=== PATIENT | male | born 1965 | race African-American/Black ===

== ENCOUNTER 2022-02-21 19:02 | Inpatient (IN) | payer OTHER, SELFPAY ==
[2022-02-21 21:13] VITALS: BMI 27.4
[2022-02-21] MEDS ORDERED: Dextrose 50% Abboject 50 ML SYRINGE SLOW IVP PRN (22:07)
[2022-02-21] MEDS ORDERED: hydrALAZINE 20 MG/ML VIAL SLOW IVP PRN (22:07)
[2022-02-21] MEDS ORDERED: Dextrose 5% in Water 1,000 ML IV PRN (22:07)
[2022-02-21] MEDS ORDERED: Ondansetron PF 4 MG/2 ML Vial IVP PRN (22:07)
[2022-02-21] MEDS ORDERED: Furosemide 40 MG/4 ML VIAL SLOW IVP SCH (22:45)
[2022-02-21] MEDS ORDERED: Lisinopril 20 MG TAB PO SCH (22:45)
[2022-02-22 07:00] LABS: #Eosinphils 0.2 thou/uL (0.0-0.7); #Lymphocytes 0.8 thou/uL (1.20-3.40); #Monocytes 0.5 thou/uL (0.11-0.59); #Neutrophils 3.4 thou/uL (1.40-6.50); %Basophils 0.6 % (0.0-1.0); %Eosinophils 4.6 % (0.0-10.0); %Lymphocytes 16.5 % (21.0-51.0); %Monocytes 10.9 % (0.0-10.0); %Neutrophils 67.4 % (42.0-75.0); Hemoglobin 11.1 g/dL (14.0-18.0); Mean Corpuscular HGB CONC 30.8 g/dL (32.0-36.0); Mean Corpuscular Hemoglobin 32.2 pg (27.0-31.0); Mean Platelet Volume 9.2 fL (7.4-10.4); Platelet Count 156 thou/uL (130-400); RBC Distribution Width 14.4 % (11.5-14.5); Red Blood Cell (RBC) Count 3.45 mill/uL (4.70-6.10)
[2022-02-22] MEDS ORDERED: Furosemide 40 MG TAB PO PRN (07:26)
[2022-02-22 07:27] LABS: ALT (SGPT) 13 U/L (8-55); AST (SGOT) 34 U/L (5-34); Alkaline Phosphatase 184 U/L (40-110); Anion Gap 13 mmol/L (10-20); BUN (Urea Nitrogen) 34 mg/dL (8.4-25.7); Bilirubin, Total 0.7 mg/dL (0.2-1.2); Calc. Creatinine Clearance 47 mL/min (70-130); Calcium 8.3 mg/dL (7.8-10.44); Carbon Dioxide 24 mmol/L (22-29); Chloride 104 mmol/L (98-107); Globulin 4.6 g/dL (2.4-3.5); Glucose 118 mg/dL (70-105); Magnesium 1.7 mg/dL (1.6-2.6); Potassium 4.6 mmol/L (3.5-5.1); Protein, Total 7.6 g/dL (6.0-8.3); Sodium 136 mmol/L (136-145)
[2022-02-22] MEDS: Polyethylene Glycol 3350 17 GM Packet PO SCH (08:43)
[2022-02-22] MEDS: Senokot S 8.6-50 MG TAB PO SCH ×3 (08:43→21:06)
[2022-02-22] MEDS ORDERED: Magnesium Sulfate 3 GM in Sodium Chloride 0.9% 100 ML IVPB SCH (09:00)
[2022-02-22] MEDS ORDERED: Lisinopril 20 MG TAB PO SCH (09:00)
[2022-02-22] MEDS ORDERED: Famotidine 20 MG TAB PO SCH (09:00)
[2022-02-22] MEDS ORDERED: Furosemide 40 MG TAB PO SCH (09:00)
[2022-02-22] MEDS ORDERED: Famotidine/PF 20 mg/2ml Vial SLOW IVP SCH (09:00)
[2022-02-22] MEDS: Lisinopril 20 MG TAB PO SCH (09:48)
[2022-02-22] MEDS ORDERED: Sodium Bicarbonate 2.5 MEQ/5 ML VIAL ONE (12:50)
[2022-02-22] MEDS ORDERED: Lidocaine 1% PF 5 ML VIAL ONE (12:51)
[2022-02-22] MEDS: Furosemide 40 MG/4 ML VIAL SLOW IVP SCH ×2 (15:31→21:01)
[2022-02-22] MEDS: Heparin 5,000 UNITS/ML VIAL SC SCH ×2 (15:31→21:01)
[2022-02-22 15:51] LABS: INR-International Normal Ratio 1.2
[2022-02-22] MEDS: Carvedilol 3.125 MG TAB PO SCH (17:46)
[2022-02-22 20:24] LABS: Bacteria/HPF None Seen HPF (None Seen); Bilirubin Negative (Negative); Blood, Urine 1+ (Negative); Clarity Clear (Clear); Glucose, Urine (Dipstick) Normal (Negative); Ketone, Urine Negative (Negative); Leukocyte Negative Leu/uL (Negative); Nitrite Negative (Negative); Protein, Urine (Dipstick) 50 mg/dL (Neg-Trace); RBC/HPF 0-3 HPF (0-3); Squamous Epithelial None Seen HPF (0-3); Urobilinogen Normal mg/dL (Less than 2); WBC/HPF 0-3 HPF (0-3); pH, Urine 5.5 (5.0-9.0)
[2022-02-22 20:25] LABS: Urine Culture Reflex No No
[2022-02-22] MEDS: Albumin 25% 25 GM/100 ML BOT IVPB SCH (21:00)
[2022-02-23] MEDS: Melatonin 3 MG TAB PO SCH ×2 (00:21→00:22)
[2022-02-23 04:32] LABS: #Eosinphils 0.3 thou/uL (0.0-0.7); #Lymphocytes 0.8 thou/uL (1.20-3.40); #Monocytes 0.6 thou/uL (0.11-0.59); %Basophils 0.7 % (0.0-1.0); %Lymphocytes 16.4 % (21.0-51.0); %Monocytes 12.3 % (0.0-10.0); %Neutrophils 63.7 % (42.0-75.0); Hemoglobin 10.5 g/dL (14.0-18.0); Mean Corpuscular HGB CONC 30.8 g/dL (32.0-36.0); Mean Corpuscular Hemoglobin 31.9 pg (27.0-31.0); Mean Platelet Volume 8.9 fL (7.4-10.4); Platelet Count 148 thou/uL (130-400); RBC Distribution Width 14.4 % (11.5-14.5); White Blood Cell (WBC) Count 4.7 thou/uL (4.8-10.8)
[2022-02-23 04:41] LABS: Hemoglobin A1c 6.8 % (4.0-6.0)
[2022-02-23 04:58] LABS: Phosphorus 3.4 mg/dL (2.3-4.7)
[2022-02-23 05:02] LABS: Anion Gap 11 mmol/L (10-20); BUN (Urea Nitrogen) 38 mg/dL (8.4-25.7); Calc. Creatinine Clearance 48 mL/min (70-130); Calcium 8.7 mg/dL (7.8-10.44); Carbon Dioxide 28 mmol/L (22-29); Chloride 102 mmol/L (98-107); Glucose 121 mg/dL (70-105); Magnesium 2.1 mg/dL (1.6-2.6); Potassium 4.5 mmol/L (3.5-5.1); Sodium 136 mmol/L (136-145)
[2022-02-23] MEDS ORDERED: Metolazone 2.5 MG TAB PO SCH (08:30)
[2022-02-23] MEDS: Carvedilol 3.125 MG TAB PO SCH ×2 (09:07→16:09)
[2022-02-23] MEDS: Polyethylene Glycol 3350 17 GM Packet PO SCH (09:07)
[2022-02-23] MEDS: Spironolactone 25 MG TAB PO SCH (09:07)
[2022-02-23] MEDS: hydrALAZINE 25 MG TAB PO SCH ×3 (09:07→20:45)
[2022-02-23] MEDS: Lisinopril 20 MG TAB PO SCH (09:07)
[2022-02-23] MEDS: Albumin 25% 25 GM/100 ML BOT IVPB SCH ×2 (09:08→20:45)
[2022-02-23] MEDS: Furosemide 40 MG/4 ML VIAL SLOW IVP SCH ×3 (09:08→20:49)
[2022-02-23] MEDS: Heparin 5,000 UNITS/ML VIAL SC SCH ×3 (09:08→20:46)
[2022-02-23] MEDS: Senokot S 8.6-50 MG TAB PO SCH ×2 (09:08→20:46)
[2022-02-23] MEDS ORDERED: Lisinopril 20 MG TAB PO SCH (09:25)
[2022-02-23] MEDS: Lisinopril 10 MG TAB PO SCH (10:45)
[2022-02-23] MEDS: Isosorbide Dinitrate 20 MG TAB PO SCH (20:45)
[2022-02-24 04:52] LABS: Anion Gap 11 mmol/L (10-20); BUN (Urea Nitrogen) 40 mg/dL (8.4-25.7); Calc. Creatinine Clearance 52 mL/min (70-130); Carbon Dioxide 28 mmol/L (22-29); Chloride 103 mmol/L (98-107); Glucose 117 mg/dL (70-105); Potassium 4.3 mmol/L (3.5-5.1); Sodium 138 mmol/L (136-145)
[2022-02-24] MEDS: Isosorbide Dinitrate 20 MG TAB PO SCH ×3 (09:44→20:19)
[2022-02-24] MEDS: Carvedilol 3.125 MG TAB PO SCH ×2 (09:44→17:14)
[2022-02-24] MEDS: Lisinopril 10 MG TAB PO SCH (09:44)
[2022-02-24] MEDS: Spironolactone 25 MG TAB PO SCH (09:45)
[2022-02-24] MEDS: hydrALAZINE 25 MG TAB PO SCH ×3 (09:45→20:19)
[2022-02-24] MEDS: Furosemide 20 MG TAB PO SCH ×2 (09:46→14:25)
[2022-02-24] MEDS: Polyethylene Glycol 3350 17 GM Packet PO SCH (09:46)
[2022-02-24] MEDS: Senokot S 8.6-50 MG TAB PO SCH ×2 (09:46→20:27)
[2022-02-24] MEDS: Heparin 5,000 UNITS/ML VIAL SC SCH ×3 (09:47→20:19)
[2022-02-25 05:23] LABS: Anion Gap 12 mmol/L (10-20); BUN (Urea Nitrogen) 39 mg/dL (8.4-25.7); Calc. Creatinine Clearance 55 mL/min (70-130); Calcium 9.2 mg/dL (7.8-10.44); Carbon Dioxide 27 mmol/L (22-29); Chloride 102 mmol/L (98-107); Glucose 115 mg/dL (70-105); Potassium 4.2 mmol/L (3.5-5.1); Sodium 137 mmol/L (136-145)
[2022-02-25] MEDS: Polyethylene Glycol 3350 17 GM Packet PO SCH (11:27)
[2022-02-25] MEDS: Senokot S 8.6-50 MG TAB PO SCH ×2 (11:27→16:45)
[2022-02-25] MEDS: Spironolactone 25 MG TAB PO SCH (11:28)
[2022-02-25] MEDS: hydrALAZINE 25 MG TAB PO SCH ×2 (11:28→16:44)
[2022-02-25] MEDS: Carvedilol 3.125 MG TAB PO SCH ×2 (11:28→16:45)
[2022-02-25] MEDS: Furosemide 20 MG TAB PO SCH ×2 (11:28→16:43)
[2022-02-25] MEDS: Heparin 5,000 UNITS/ML VIAL SC SCH ×2 (11:28→16:43)
[2022-02-25] MEDS: Isosorbide Dinitrate 20 MG TAB PO SCH ×2 (11:29→16:45)
[2022-02-25] MEDS: Lisinopril 10 MG TAB PO SCH (11:29)
[2022-02-25] MEDS ORDERED: HYDROmorphone 0.5 MG/0.5 ML SYRINGE SLOW IVP SCH (11:45)
[2022-02-25 16:41] VITALS: BP 131/82; TEMP 97.9
== END 2022-02-25 18:13 | disposition home or self-care (01) | DRG 291 ==
LOC: SURG B 20:44 → OBSVTOIN 22:07 → 2NO 02-22 13:34
PROVIDERS: ADMIT Internal Medicine; ATTEND Internal Medicine
DX: I13.0 Hypertensive heart and chronic kidney disease with heart failure and stage 1 through stage 4 chronic kidney disease, or unspecified chronic kidney disease (principal); J96.01 Acute respiratory failure with hypoxia; I50.43 Acute on chronic combined systolic (congestive) and diastolic (congestive) heart failure; R18.8 Other ascites; N17.9 Acute kidney failure, unspecified; L97.829 Non-pressure chronic ulcer of other part of left lower leg with unspecified severity; L97.819 Non-pressure chronic ulcer of other part of right lower leg with unspecified severity; I50.9 Heart failure, unspecified; I42.8 Other cardiomyopathies; N18.9 Chronic kidney disease, unspecified; G89.29 Other chronic pain; R10.9 Unspecified abdominal pain; E11.22 Type 2 diabetes mellitus with diabetic chronic kidney disease; I08.3 Combined rheumatic disorders of mitral, aortic and tricuspid valves; Z60.2 Problems related to living alone; D63.1 Anemia in chronic kidney disease; I25.2 Old myocardial infarction; Z86.73 Personal history of transient ischemic attack (TIA), and cerebral infarction without residual deficits; Z79.899 Other long term (current) drug therapy; Z79.82 Long term (current) use of aspirin; Z82.49 Family history of ischemic heart disease and other diseases of the circulatory system; Z83.3 Family history of diabetes mellitus
CPT/HCPCS: 36415; 36416; 70450; 71045; 76700; 76705; 76856; 80048; 80053; 82607; 82746; 83036; 83735; 83880; 84100; 85025; 85610; 85730; 93306; 94640; J1644; J1940; J3475; J3490; J7620; P9047; U0003; U0005

== ENCOUNTER 2023-10-18 17:13 | Inpatient (IN) | payer OTHER, SELFPAY ==
[2023-10-18 17:57] LABS: #Basophils 0.1 thou/uL (0.0-0.2); #Eosinphils 0.2 thou/uL (0.0-0.7); #Monocytes 0.6 thou/uL (0.11-0.59); #Neutrophils 2.8 thou/uL (1.40-6.50); %Basophils 1.2 % (0.0-1.0); %Eosinophils 3.8 % (0.0-10.0); %Monocytes 14.9 % (0.0-10.0); %Neutrophils 65.6 % (42.0-75.0); Hematocrit 32.8 % (42.0-52.0); Hemoglobin 10.6 g/dL (14.0-18.0); Mean Corpuscular HGB CONC 32.3 g/dL (32.0-36.0); Mean Corpuscular Hemoglobin 32.2 pg (27.0-31.0); Mean Corpuscular Volume 99.7 fl (78.0-98.0); Mean Platelet Volume 11.2 fL (7.4-10.4); Platelet Count 161 10x3/uL (130-400); RBC Distribution Width 15.3 % (11.5-14.5); Red Blood Cell (RBC) Count 3.29 mill/uL (4.70-6.10); White Blood Cell (WBC) Count 4.2 10x3/uL (4.8-10.8)
[2023-10-18 18:26] LABS: Troponin I 0.022 ng/mL (< 0.028)
[2023-10-18 18:27] LABS: ALT (SGPT) 51 U/L (8-55); AST (SGOT) 44 U/L (5-34); Albumin 3.6 g/dL (3.5-5.0); Alkaline Phosphatase 451 U/L (40-110); Anion Gap 14 mmol/L (10-20); BUN (Urea Nitrogen) 40 mg/dL (8.4-25.7); Bilirubin, Total 1.4 mg/dL (0.2-1.2); Calc. Creatinine Clearance 0 mL/min (70-130); Calcium 9.4 mg/dL (7.8-10.44); Carbon Dioxide 19 mmol/L (22-29); Chloride 107 mmol/L (98-107); Estimated GFR 37; Globulin 4.5 g/dL (2.4-3.5); Glucose 109 mg/dL (70-105); Protein, Total 8.1 g/dL (6.0-8.3); Sodium 134 mmol/L (136-145)
[2023-10-18 18:43] LABS: Critical Call Chemistry NUR.ALP1 @1843; Potassium 6.3 mmol/L (3.5-5.1)
[2023-10-18] MEDS ORDERED: Dextrose 10% in Water 250 ML ONE (18:52)
[2023-10-18] MEDS ORDERED: CALCIUM GLUC 1 GM (50 ML) BAG ONE (19:14)
[2023-10-18] MEDS ORDERED: Insulin Regular 300 UNITS/3 ML VIAL ONE (19:14)
[2023-10-18] MEDS ORDERED: Furosemide 40 MG (4 mL) VIAL ONE (19:59)
[2023-10-18] MEDS ORDERED: Glucagon 1 MG/ML KIT IM PRN (20:16)
[2023-10-18] MEDS ORDERED: Acetaminophen 650 MG Suppository PR PRN (20:16)
[2023-10-18] MEDS ORDERED: Dextrose 5% in Water 1,000 ML IV PRN (20:16)
[2023-10-18] MEDS ORDERED: Acetaminophen 325 MG TAB PO PRN (20:16)
[2023-10-18] MEDS ORDERED: HumaLOG 300 UNITS/3 ML VIAL SC PRN ×2 (20:16)
[2023-10-18] MEDS ORDERED: Dextrose 50% Abboject 50 ML SYRINGE SLOW IVP PRN (20:16)
[2023-10-18] MEDS ORDERED: Ondansetron PF 4 MG/2 ML Vial IVP PRN (20:16)
[2023-10-18] MEDS ORDERED: Ondansetron ODT 4 MG TAB PO PRN (20:16)
[2023-10-18] MEDS ORDERED: Furosemide 40 MG (4 mL) VIAL SLOW IVP SCH (20:30)
[2023-10-18 21:46] LABS: Troponin I 0.018 ng/mL (< 0.028)
[2023-10-18] MEDS: Heparin 5,000 UNITS/ML VIAL SC SCH (22:04)
[2023-10-18] MEDS: hydrALAZINE 25 MG TAB PO SCH (22:04)
[2023-10-18] MEDS: Gabapentin 300 MG CAP PO SCH (22:04)
[2023-10-18 22:22] LABS: Anion Gap 15 mmol/L (10-20); BUN (Urea Nitrogen) 40 mg/dL (8.4-25.7); Calc. Creatinine Clearance 41 mL/min (70-130); Calcium 9.3 mg/dL (7.8-10.44); Carbon Dioxide 18 mmol/L (22-29); Chloride 108 mmol/L (98-107); Estimated GFR 36; Glucose 100 mg/dL (70-105); Potassium 5.6 mmol/L (3.5-5.1); Sodium 135 mmol/L (136-145)
[2023-10-19 00:29] LABS: Troponin I 0.015 ng/mL (< 0.028)
[2023-10-19 05:47] LABS: #Eosinphils 0.4 thou/uL (0.0-0.7); #Monocytes 0.6 thou/uL (0.11-0.59); #Neutrophils 2.8 thou/uL (1.40-6.50); %Basophils 0.9 % (0.0-1.0); %Eosinophils 8.1 % (0.0-10.0); %Lymphocytes 14.3 % (21.0-51.0); %Neutrophils 63.3 % (42.0-75.0); Hemoglobin 10.7 g/dL (14.0-18.0); Mean Corpuscular HGB CONC 33.4 g/dL (32.0-36.0); Mean Corpuscular Hemoglobin 32.3 pg (27.0-31.0); Mean Platelet Volume 11.7 fL (7.4-10.4); Platelet Count 165 10x3/uL (130-400); RBC Distribution Width 14.8 % (11.5-14.5); Red Blood Cell (RBC) Count 3.31 mill/uL (4.70-6.10); White Blood Cell (WBC) Count 4.5 10x3/uL (4.8-10.8)
[2023-10-19 06:15] LABS: ALT (SGPT) 44 U/L (8-55); AST (SGOT) 38 U/L (5-34); Albumin 3.2 g/dL (3.5-5.0); Alkaline Phosphatase 406 U/L (40-110); Anion Gap 13 mmol/L (10-20); BUN (Urea Nitrogen) 43 mg/dL (8.4-25.7); Bilirubin, Total 1.2 mg/dL (0.2-1.2); Calc. Creatinine Clearance 40 mL/min (70-130); Calcium 9.3 mg/dL (7.8-10.44); Carbon Dioxide 20 mmol/L (22-29); Chloride 106 mmol/L (98-107); Estimated GFR 35; Globulin 4.3 g/dL (2.4-3.5); Glucose 74 mg/dL (70-105); Mean Corpuscular Volume 96.7 fl (78.0-98.0); Potassium 5.4 mmol/L (3.5-5.1); Protein, Total 7.5 g/dL (6.0-8.3); Sodium 134 mmol/L (136-145)
[2023-10-19] MEDS ORDERED: Furosemide 40 MG (4 mL) VIAL SLOW IVP SCH (09:00)
[2023-10-19] MEDS: Aspirin Chewable 81 MG TAB PO SCH (09:37)
[2023-10-19] MEDS: Carvedilol 3.125 MG TAB PO SCH ×2 (09:37→16:47)
[2023-10-19] MEDS: Gabapentin 300 MG CAP PO SCH ×3 (09:37→21:30)
[2023-10-19] MEDS: hydrALAZINE 25 MG TAB PO SCH ×3 (09:38→21:33)
[2023-10-19] MEDS: Heparin 5,000 UNITS/ML VIAL SC SCH ×2 (09:39→21:32)
[2023-10-19 11:08] VITALS: BMI 25.4
[2023-10-19] MEDS: Furosemide 40 MG TAB PO SCH (14:55)
[2023-10-19] MEDS ORDERED: Sodium Polystyrene Sulfonate 15 GM (60 mL) BOT PO SCH (16:30)
[2023-10-19] MEDS ORDERED: Dextrose 50% Abboject 50 ML SYRINGE SLOW IVP SCH (16:30)
[2023-10-19] MEDS ORDERED: Insulin Regular 300 UNITS/3 ML VIAL IVP SCH (16:30)
[2023-10-19] MEDS ORDERED: Albuterol 2.5 MG (3 mL) NEB NEB SCH (16:30)
[2023-10-19 21:02] LABS: Anion Gap 13 mmol/L (10-20); BUN (Urea Nitrogen) 54 mg/dL (8.4-25.7); Calc. Creatinine Clearance 32 mL/min (70-130); Calcium 8.8 mg/dL (7.8-10.44); Carbon Dioxide 21 mmol/L (22-29); Chloride 102 mmol/L (98-107); Estimated GFR 28; Glucose 152 mg/dL (70-105); Potassium 5.4 mmol/L (3.5-5.1); Sodium 131 mmol/L (136-145)
[2023-10-20 04:50] LABS: #Eosinphils 0.5 thou/uL (0.0-0.7); #Monocytes 0.6 thou/uL (0.11-0.59); #Neutrophils 2.1 thou/uL (1.40-6.50); %Lymphocytes 20.4 % (21.0-51.0); %Monocytes 14.5 % (0.0-10.0); %Neutrophils 50.4 % (42.0-75.0); Hematocrit 33.8 % (42.0-52.0); Mean Corpuscular HGB CONC 32.5 g/dL (32.0-36.0); Mean Corpuscular Hemoglobin 31.4 pg (27.0-31.0); Mean Corpuscular Volume 96.6 fl (78.0-98.0); Mean Platelet Volume 11.5 fL (7.4-10.4); Platelet Count 189 10x3/uL (130-400); RBC Distribution Width 14.6 % (11.5-14.5); White Blood Cell (WBC) Count 4.1 10x3/uL (4.8-10.8)
[2023-10-20 05:13] LABS: Anion Gap 15 mmol/L (10-20); BUN (Urea Nitrogen) 55 mg/dL (8.4-25.7); Calc. Creatinine Clearance 34 mL/min (70-130); Calcium 8.3 mg/dL (7.8-10.44); Carbon Dioxide 21 mmol/L (22-29); Chloride 100 mmol/L (98-107); Estimated GFR 30; Glucose 139 mg/dL (70-105); Potassium 4.6 mmol/L (3.5-5.1); Sodium 131 mmol/L (136-145)
[2023-10-20] MEDS: Carvedilol 3.125 MG TAB PO SCH ×2 (08:04→16:10)
[2023-10-20] MEDS: Isosorbide Dinitrate 5 MG TAB PO SCH ×2 (08:05→16:13)
[2023-10-20] MEDS: Furosemide 40 MG TAB PO SCH ×2 (08:05→16:14)
[2023-10-20] MEDS: Aspirin Chewable 81 MG TAB PO SCH (08:05)
[2023-10-20] MEDS: hydrALAZINE 25 MG TAB PO SCH ×2 (08:05→16:10)
[2023-10-20] MEDS: Heparin 5,000 UNITS/ML VIAL SC SCH (08:08)
[2023-10-20] MEDS: Gabapentin 300 MG CAP PO SCH ×2 (08:08→16:11)
[2023-10-20] MEDS ORDERED: Lisinopril 5 MG TAB PO SCH (09:00)
[2023-10-20] MEDS ORDERED: CEFAZOLIN 2 GM VIAL ONE (12:53)
[2023-10-20] MEDS ORDERED: Lidocaine 1% (PF) 30 ML VIAL ONE (12:53)
[2023-10-20] MEDS ORDERED: Gentamicin 80 MG/2 ML VIAL ONE (12:53)
[2023-10-20] MEDS ORDERED: Etomidate 40 MG (20 mL) VIAL ONE (13:52)
[2023-10-20] MEDS ORDERED: Phenylephrine 40 MG/NS 250 ML 250 ML ONE (13:57)
[2023-10-20] MEDS ORDERED: KETAMINE 100 MG/ML (5ML VIAL) ONE (13:57)
[2023-10-20] MEDS ORDERED: Midazolam HCl 2 mg/2 ml Vial ONE (14:13)
[2023-10-20] MEDS ORDERED: Glycopyrrolate 0.2 MG/ML 5 ML SYRINGE ONE (14:18)
[2023-10-20] MEDS ORDERED: Cephalexin 250 MG CAP PO SCH (15:00)
[2023-10-20 17:32] VITALS: BP 101/56; TEMP 97.5
== END 2023-10-20 18:03 | DRG 276 ==
LOC: ERS 17:13 → 2NO 19:48 → EEVIPCON 19:48
PROVIDERS: ADMIT Student in an Organized Health Care Education/Training Program; ATTEND Internal Medicine
PROC: 0JH608Z Insertion of Defibrillator Generator into Chest Subcutaneous Tissue and Fascia, Open Approach (ICD-10-PCS; principal; 2023-10-20)
PROC: 02HK3KZ Insertion of Defibrillator Lead into Right Ventricle, Percutaneous Approach (ICD-10-PCS; 2023-10-20)
PROC: 3E0102A Introduction of Anti-Infective Envelope into Subcutaneous Tissue, Open Approach (ICD-10-PCS; 2023-10-20)
PROC: 3E033XZ Introduction of Vasopressor into Peripheral Vein, Percutaneous Approach (ICD-10-PCS; 2023-10-20)
DX: I13.0 Hypertensive heart and chronic kidney disease with heart failure and stage 1 through stage 4 chronic kidney disease, or unspecified chronic kidney disease (principal); I50.43 Acute on chronic combined systolic (congestive) and diastolic (congestive) heart failure; E87.20 Acidosis, unspecified; E87.1 Hypo-osmolality and hyponatremia; E87.5 Hyperkalemia; N18.30 Chronic kidney disease, stage 3 unspecified; E11.22 Type 2 diabetes mellitus with diabetic chronic kidney disease; D63.1 Anemia in chronic kidney disease; Z98.890 Other specified postprocedural states; Z83.3 Family history of diabetes mellitus; Z82.49 Family history of ischemic heart disease and other diseases of the circulatory system; E11.40 Type 2 diabetes mellitus with diabetic neuropathy, unspecified; Z79.82 Long term (current) use of aspirin; Z79.899 Other long term (current) drug therapy; Z91.148 Patient's other noncompliance with medication regimen for other reason; I42.8 Other cardiomyopathies; Z86.73 Personal history of transient ischemic attack (TIA), and cerebral infarction without residual deficits; Z95.810 Presence of automatic (implantable) cardiac defibrillator
CPT/HCPCS: 33249; 36415; 36416; 71045; 80048; 80053; 83880; 83970; 84484; 85025; 93005; 93306; 93641; 94640; 96365; 96375; C1721; C1895; J0613; J1580; J1644; J1815; J1940; J2001; J2250; J7611

== ENCOUNTER 2023-10-24 13:07 | Emergency (ER) | payer SELFPAY ==
[2023-10-24 16:16] LABS: #Basophils 0.1 thou/uL (0.0-0.2); #Eosinphils 0.4 thou/uL (0.0-0.7); #Monocytes 0.6 thou/uL (0.11-0.59); #Neutrophils 3.7 thou/uL (1.40-6.50); %Eosinophils 7.1 % (0.0-10.0); %Lymphocytes 20.4 % (21.0-51.0); %Monocytes 10.2 % (0.0-10.0); %Neutrophils 60.2 % (42.0-75.0); Hematocrit 38.3 % (42.0-52.0); Hemoglobin 12.2 g/dL (14.0-18.0); Mean Corpuscular HGB CONC 31.9 g/dL (32.0-36.0); Mean Corpuscular Hemoglobin 31.7 pg (27.0-31.0); Mean Corpuscular Volume 99.5 fl (78.0-98.0); Mean Platelet Volume 10.8 fL (7.4-10.4); Platelet Count 218 10x3/uL (130-400); RBC Distribution Width 14.4 % (11.5-14.5); Red Blood Cell (RBC) Count 3.85 mill/uL (4.70-6.10); White Blood Cell (WBC) Count 6.2 10x3/uL (4.8-10.8)
[2023-10-24 16:41] LABS: ALT (SGPT) 25 U/L (8-55); AST (SGOT) 31 U/L (5-34); Albumin 3.4 g/dL (3.5-5.0); Alkaline Phosphatase 417 U/L (40-110); Anion Gap 12 mmol/L (10-20); BUN (Urea Nitrogen) 58 mg/dL (8.4-25.7); Bilirubin, Total 0.4 mg/dL (0.2-1.2); Calc. Creatinine Clearance 0 mL/min (70-130); Calcium 9.1 mg/dL (7.8-10.44); Carbon Dioxide 21 mmol/L (22-29); Chloride 104 mmol/L (98-107); Estimated GFR 34; Globulin 4.9 g/dL (2.4-3.5); Glucose 131 mg/dL (70-105); Potassium 5.4 mmol/L (3.5-5.1); Protein, Total 8.3 g/dL (6.0-8.3); Sodium 132 mmol/L (136-145); Troponin I 0.014 ng/mL (< 0.028)
[2023-10-24 17:22] LABS: SARS-CoV-2 NAA Rapid Test DETECTED (NotDetected)
== END 2023-10-24 17:20 ==
LOC: ERS 13:07 → EEVIPCON 13:07 → ERS 17:20
DX: R06.00 Dyspnea, unspecified (principal); R05.9 Cough, unspecified; E10.9 Type 1 diabetes mellitus without complications; I11.0 Hypertensive heart disease with heart failure; I50.9 Heart failure, unspecified; J45.909 Unspecified asthma, uncomplicated; Z79.899 Other long term (current) drug therapy; Z79.82 Long term (current) use of aspirin
CPT/HCPCS: 36415; 71045; 80053; 83880; 84484; 85025; 93005